=== PATIENT | male | born 1945 | race Caucasian/White ===

== ENCOUNTER 2017-04-12 05:58 | Day surgery (SDC) | payer MEDICARE, OTHER ==
[2017-04-12] MEDS ORDERED: Ketamine HCl 50 MG/ML IV ONE (05:59)
[2017-04-12] MEDS ORDERED: DIPRIVAN 200 MG/20 ML IV ONE (05:59)
[2017-04-12] MEDS ORDERED: Lactated Ringers 1,000 ML IV ONE ×2 (06:28→10:24)
[2017-04-12] MEDS ORDERED: Lactated Ringers 1,000 ML IV SCH (07:00)
[2017-04-12 09:08] VITALS: O2SAT 99
[2017-04-12 09:21] VITALS: BP 143/72; PULSE 49
--- NOTE | 2017-04-12 09:37 | OP ---
SURGERY DATE: 04/12/17 SURGERY TIME: 734 PREOPERATIVE DIAGNOSIS: 1. SCREENING EXAM. POSTOPERATIVE DIAGNOSIS: 1. SMALL RECTAL POLYPS. PROCEDURE: 1. Colonoscopy with biopsy. SURGEON: Dr. Tran. ANESTHESIA: MAC. Medications given by the Anesthesia Department. BRIEF HISTORY: The patient is a 71 y/o WM patient presenting now for his first colonoscopic evaluation. He was appraised of the risks of the procedure including the risk of perforation, phlebitis, bleeding, and missed lesions. The patient verbalized his understanding and desired to have the procedure performed. DESCRIPTION OF PROCEDURE: The patient was given the medications by the Anesthesia Department. He had continuous pulse oximetry, ECG monitoring, intermittent BP monitoring, and end tidal CO2 monitoring during the examination. He was placed in the left lateral decubitus position. A digital rectal examination was performed and revealed normal anal sphincter tone, no masses, and a normal prostate. The flexible Olympus pediatric colonoscope was used to intubate the rectum. A view of the colon was developed sequentially to the cecum. Upon insertion and withdrawal, was noted a polyp on retroflex view in the rectum which was biopsied using cold biopsy technique. Also, a second one was noted upon direct view. This was also biopsied to destruction using cold biopsy technique. The scope was then removed from the patient who tolerated the procedure well and was sent back to OP recovery in good condition. The prep was noted to be good.
== END 2017-04-12 09:15 | disposition home or self-care (01) ==
LOC: SDC 05:58
PROVIDERS: ATTEND Family Medicine
PROC: 0DBP8ZX Excision of Rectum, Via Natural or Artificial Opening Endoscopic, Diagnostic (ICD-10-PCS; principal; 2017-04-12)
DX: K62.1 Rectal polyp (principal); Z12.11 Encounter for screening for malignant neoplasm of colon
CPT/HCPCS: 00810; 36415; 99100; J2704